=== PATIENT | male | born 1980 | race American Indian/Alaskan Native ===

== ENCOUNTER 2021-08-17 12:31 | Outpatient (CLI) | payer BC ==
--- NOTE | 2021-08-17 14:12 | XRay Report ---
RIGHT HIP 3 VIEWS INDICATION / CLINICAL INFORMATION: RIGHT HIP PAIN COMPARISON: None available. FINDINGS: BONES and JOINT(S): No acute fracture or subluxation. There is mild osteoarthritis of the hips and mi ld lumbar spondylosis. No other significant arthritis. SOFT TISSUES: No significant abnormality. ADDITIONAL FINDINGS: None. IMPRESSION: 1. No acute findings. 2. Degenerative changes as above. Signer Name: Devonte Melendez MD Signed: 08/17/2021 2:08 PM Workstation Name: [id number]
== END 2021-08-17 12:32 | disposition home or self-care (01) ==
LOC: SPVIMAG 12:31
PROVIDERS: ATTEND Family Medicine
DX: M16.11 Unilateral primary osteoarthritis, right hip (principal); M47.816 Spondylosis without myelopathy or radiculopathy, lumbar region